=== PATIENT | female | born 1995 | race Caucasian/White ===

== ENCOUNTER 2019-10-30 17:16 | Emergency (ER) | payer SELFPAY ==
[~2019-10-30] VITALS: Ht 154.9 cm; Wt 70.8 kg
[2019-10-30 17:23] VITALS: Ht 154.9 cm; Wt 70.8 kg
[2019-10-30 21:04] VITALS: BP 122/85
== END 2019-10-30 21:04 | disposition home or self-care (01) ==
LOC: ED 17:16
DX: R11.2 Nausea with vomiting, unspecified (principal); R19.7 Diarrhea, unspecified; R51 Headache
CPT/HCPCS: Q0162